=== PATIENT | male | born 1990 | race Caucasian/White ===

== ENCOUNTER 2019-08-15 19:33 | Emergency (ER) | payer BC ==
[~2019-08-15] VITALS: Ht 188 cm; Wt 86.0 kg
[2019-08-15] MEDS ORDERED: SUBOXONE1 MI1 SL (19:50)
[2019-08-15] MEDS ORDERED: KEFLEX500 MG PO (20:11)
[2019-08-15 20:40] VITALS: BP 141/83
== END 2019-08-15 20:44 | disposition home or self-care (01) | DRG 603 ==
LOC: ED 19:33
DX: I89.1 Lymphangitis (principal); R23.8 Other skin changes